=== PATIENT | female | born 1955 ===

== ENCOUNTER 2018-09-15 04:57 | Emergency (ER) | payer OTHER ==
[2018-09-15 05:32] VITALS: O2SAT 95
--- NOTE | 2018-09-15 05:39 | C.PDOC ---
History Of Present Illness Patient gave a history of cough and not feeling well for 5 to 6 days. Also having urinary frequency and pain. <Waqas Qiu R - Last Filed: 09/15/18 06:31> History Per: Patient, Family History/Exam Limitations: no limitations Onset/Duration Of Symptoms: Days Current Symptoms Are (Timing): Still Present Location Of Pain: Other (lower abdominal area. diffuse body achiness.) Sick Contacts (Context): None Associated Symptoms: Fever, Cough. denies: Sputum Pain Scale Rating Of: 3 Recent travel outside of the [place]: No Additional History Per: Family <Waqas Qiu R - Last Filed: 09/15/18 06:31> <Julia Baer A - Last Filed: 09/15/18 09:12> Chief Complaint (Nursing): Fever Past Medical History Vital Signs: Last Vital Signs Temp 100.7 F H 09/15/18 05:22 Pulse 104 H 09/15/18 05:22 Resp 22 09/15/18 05:22 BP 162/67 H 09/15/18 05:22 Pulse Ox 95 09/15/18 05:22 - Medical History PMH: Anemia, Bronchitis, HTN Denies: Asthma, Chronic Kidney Disease Surgical History: Appendectomy Family History: States: Unknown Family Hx - Social History Hx Alcohol Use: No Hx Substance Use: No - Immunization History Hx Tetanus Toxoid Vaccination: No Hx Influenza Vaccination: Yes Hx Pneumococcal Vaccination: No <Waqas Qiu R - Last Filed: 09/15/18 06:31> Vital Signs: Last Vital Signs Temp 99.7 F H 09/15/18 08:27 Pulse 81 09/15/18 08:27 Resp 18 09/15/18 08:27 BP 107/53 L 09/15/18 08:27 Pulse Ox 95 09/15/18 08:27 <Julia Baer A - Last Filed: 09/15/18 09:12> Review Of Systems Constitutional: Positive for: Fever, Weakness, Malaise. Negative for: Chills Respiratory: Positive for: Cough. Negative for: Sputum Gastrointestinal: Positive for: Other (hypogastric pain). Negative for: Nausea, Vomiting Genitourinary: Positive for: Dysuria, Frequency. Negative for: Hematuria Musculoskeletal: Negative for: Neck Pain, Shoulder Pain, Arm Pain Skin: Negative for: Rash, Lesions Neurological: Negative for: Weakness, Numbness, Incoordination, Change in Speech, Confusion, Seizures, Altered Mental Status, Headache Psych: Negative for: Anxiety, Depression <Waqas Qiu - Last Filed: 09/15/18 06:31> Physical Exam - Physical Exam Appears: Well, Non-toxic, No Acute Distress Skin: Normal Color Nose: Normal Throat: Normal Neck: Normal Chest: Symmetrical, No Deformity, No Tenderness Cardiovascular: Rhythm Regular, No Friction Rub, No Murmur, No JVD Respiratory: Other (occa. rhonchi) Gastrointestinal/Abdominal: Normal Exam, Other (hypogastric tenderness) Back: Normal Inspection Extremity: Normal ROM <Waqas Qiu - Last Filed: 09/15/18 06:31> ED Course And Treatment O2 Sat by Pulse Oximetry: 95 (RA) Pulse Ox Interpretation: Normal - Radiology CXR: Interpreted by Me, Viewed By Me CXR Interpretation: Yes: No Acute Disease, Other (normal chest film.). No: Infiltrates <Waqas Qiu - Last Filed: 09/15/18 06:31> - Laboratory Results Result Diagrams: 09/15/18 06:29 09/15/18 06:29 <Julia Baer A - Last Filed: 09/15/18 09:12> Medical Decision Making Medical Decision Making: Plan - EKG - CXR - Tylenol 975 mg PO - Bloodwork <Waqas Qiu R - Last Filed: 09/15/18 06:31> Disposition <Waqas Qiu - Last Filed: 09/15/18 06:31> Counseled Patient/Family Regarding: Studies Performed, Diagnosis, Need For Followup, Rx Given - Disposition Disposition Time: 09:15 <Julia Baer A - Last Filed: 09/15/18 09:12> - Disposition Referrals: [facility] [Outside] Disposition: HOME/ ROUTINE Condition: STABLE Additional Instructions: FOLLOW UP IN THE MEDICAL CLINIC IN 1-2 DAYS DRINK PLENTY OF FLUIDS USE MEDICATIONS DIRECTED RETURN TO EMERGENCY ROOM IF SYMPTOMS BECOME WORSE SEGUIR EN LA CLNICA MDICA EN 1-2 NUNEZ BEBER [facility] UTILICE MEDICAMENTOS K[facility]ACE SE DIRIGE VUELVA A LA [facility] DE EMERGENCIA SI LOS SNT[place] SE HACEN [place] Prescriptions: Ciprofloxacin [Cipro] 1 tab PO BID #14 tab Naproxen 375 mg PO BID PRN #20 tablet PRN Reason: pain Phenazopyridine [Pyridium] 100 mg PO TID #9 tab Instructions: Urinary Tract Infection, Adult (DC) Forms: [employer] (Greenlandic) Print Language: GREENLANDIC - Clinical Impression Clinical Impression: Anemia, Fever, UTI (urinary tract infection) Addendum Addendum: 09/15/18 09:02 Patient resting comfortably, states she feels better. Is c/o mild headache and suprapubic pain. She reports known history of "refractory" anemia diagnosed in [facility], typically Hgb is 8-9 and is sometimes associated with low platelets. Will given IV toradol and NS bolus. Patient to be discharged home with Rx for Ciprofloxacin, pyridium and naprosyn. She was instructed to follow up with medical clinic in 1-2 days and ultimately will need hematology eval/referral. Patient understands she should return to ED if symptoms worsen. <Julia Baer - Last Filed: 09/15/18 09:12>
[2018-09-15] MEDS ORDERED: Sodium Chloride 0.9% 1,000 ML IV ONE (05:44)
[2018-09-15 05:51] LABS: SQUAMOUS EPITHIAL 4 /hpf (0-5); URINE BACTERIA FEW (<OCC); URINE BILIRUBIN NEGATIVE (NEGATIVE); URINE BLOOD 1+ (NEGATIVE); URINE CLARITY Hazy (Clear); URINE COLOR Yellow (YELLOW); URINE GLUCOSE (UA) NORMAL (Normal); URINE LEUKOCYTE ESTERASE 3+ Leu/uL (Negative); URINE PROTEIN 1+ mg/dL (NEGATIVE); URINE UROBILINOGEN NORMAL mg/dL (0.2-1.0)
[2018-09-15] MEDS ORDERED: Ciprofloxacin 400mg/200ml D5W 400 MG/200 ML BAG IVPB STA (06:02)
[2018-09-15] MEDS ORDERED: Ciprofloxacin 400mg/200ml D5W 400 MG/200 ML BAG IVPB ONE (06:28)
[2018-09-15] MEDS ORDERED: Sodium Chloride 0.9% 1,000 ML ONE ×2 (06:28→09:19)
[2018-09-15 06:45] LABS: ALB/GLOB RATIO 1.2 (1.0-2.1); ALT/SGPT 29 U/L (9-52); AST/SGOT 26 U/L (14-36); BLOOD UREA NITROGEN 33 mg/dL (7-17); CALCIUM 8.9 mg/dl (8.6-10.4); GFR NON-AFRICAN AMERICAN 56
[2018-09-15 06:46] LABS: BASO % 0.1 % (0.0-2.0); EOS % 0.1 % (0.0-4.0); HEMOGLOBIN 8.5 g/dL (11.0-16.0); LYMPH # 0.5 K/uL (1.0-4.3); LYMPH % 5.2 % (20.0-40.0); MEAN CELL VOLUME 91.7 fL (81.0-99.0); MEAN CORPUSCULAR HEMOGLOBIN 30.7 pg (27.0-31.0); MEAN CORPUSCULAR HGB CONC 33.5 g/dL (33.0-37.0); MEAN PLATELET VOLUME 8.8 fL (7.2-11.7); MONO # 0.7 K/uL (0.0-0.8); NEUT # 8.2 K/uL (1.8-7.0); NEUT % 87.6 % (50.0-75.0); NRBC % 0.1 % (0.0-2.0); PLATELET COUNT 136 K/uL (130-400); RBC 2.75 Mil/uL (3.80-5.20); RED CELL DISTRIBUTION WIDTH 14.6 % (11.5-14.5); WHITE BLOOD COUNT 9.4 K/uL (4.8-10.8)
[2018-09-15] MEDS ORDERED: Potassium Chloride 20 mEq/15 ml LIQ UD PO STA (06:46)
[2018-09-15] MEDS ORDERED: Potassium Chloride 20 mEq/15 ml LIQ UD ONE (06:58)
[2018-09-15 08:27] VITALS: RESP 18
[2018-09-15 08:33] LABS: ANISOCYTOSIS SLIGHT; BANDS 2 % (0-2); BASOPHIL 1 % (0-2); EOSINOPHIL 1 % (0-4); LYMPHOCYTE 1 % (20-40); MONOCYTE 5 % (0-10); NEUTROPHIL 90 % (50-75); PLATELET ESTIMATE NORMAL (NORMAL); POIKILOCYTOSIS SLIGHT; TOTAL CELLS COUNTED 100
[2018-09-15 08:34] LABS: HYPOCHROMIC SLIGHT; OVALOCYTES SLIGHT; TEARDROP CELLS SLIGHT
[2018-09-15] MEDS ORDERED: Sodium Chloride 0.9% 500 ML IV ONE ×2 (08:56→08:57)
[2018-09-15 09:38] VITALS: BP 105/62; PULSE 69; TEMP 98.3
--- NOTE | 2018-09-15 09:44 | RAD ---
Date of service: 09/15/2018 HISTORY: Shortness of breath COMPARISON: No prior. TECHNIQUE: Chest PA and lateral FINDINGS: LUNGS: Mild venous congestion. Small nodular density at the medial right lung apex. PLEURA: No significant pleural effusion identified. No pneumothorax apparent. CARDIOVASCULAR: Aortic atherosclerotic calcification present. Tortuous ectatic aorta. Mild cardiomegaly. OSSEOUS STRUCTURES: Degenerative changes in the spine. VISUALIZED UPPER ABDOMEN: Normal. OTHER FINDINGS: None. IMPRESSION: Mild venous congestion. Small nodular density at the medial right lung apex.
== END 2018-09-15 10:11 | disposition home or self-care (01) ==
LOC: C.ER 04:57
DX: N39.0 Urinary tract infection, site not specified (principal); D64.9 Anemia, unspecified; R50.9 Fever, unspecified; I10 Essential (primary) hypertension
CPT/HCPCS: 71046; 80053; 81001; 85025; 85378; 87086; 87804; 96374; 99284; J0744; J1885; J7030; J7040